=== PATIENT | male | born 1960 ===

== ENCOUNTER 2016-10-30 22:07 | Emergency (ER) | payer SELFPAY ==
[~2016-10-30] VITALS: Ht 172.7 cm; Wt 79.5 kg
[2016-10-30 22:13] VITALS: Ht 172.7 cm; Wt 79.5 kg
--- NOTE | 2016-10-30 23:12 | RADRPT ---
PROCEDURE: CT brain without contrast CLINICAL INDICATION: Intoxication TECHNIQUE: A CT of the brain was performed on a GE [address] scanner utilizing axial sections fr om the skull base through the vertex without contrast. The exam CDTIvol = 45.01 mGy and DLP = 720. 23 mGy-cm. COMPARISON: None available FINDINGS: Areas of low attenuation involving the inferior left greater than right frontal lobes most likely ar e the sequela of remote at post traumatic parenchymal contusions No acute intracranial hemorrhage is identified. There is no mass effect or midline shift. No extra-axial fluid collection is seen. Th e ventricles and sulci are mildly enlarged, compatible with generalized volume loss. Esteban-white dif ferentiation is preserved. The fourth ventricle is midline and there is no density alteration in th e ronald or cerebellum The osseous structures are unremarkable. The mastoid air cells and visualized paranasal sinuses are clear. RPTAT:HJJR IMPRESSION: 1. No evidence for acute intracranial abnormality or mass effect. 2. Bilateral left greater than right inferior frontal lobe areas of encephalomalacia likely the sequ william of remote parenchymal contusion superimposed upon generalized advanced cerebral atrophy for the patient's provided age of 56 years. Physician Pierre Date Time Electronically viewed and signed by Physician Pierre on 10/30/2016 23:12 /
--- NOTE | 2016-10-31 02:14 | ERD ---
ER Documentation Chief Complaint Date/Time DATE: 10/31/16 TIME: 02:12 Chief Complaint BIBA RA89,ETOH intox,found passed out on the curb HPI This is a 56-year-old male brought in by rescue 9 for alcohol intoxication. He was found passed on a curb. Patient is obtunded upon arrival but anything is a gag reflex. ROS All systems reviewed and are negative except as per history of present illness. Allergies Allergies: Coded Allergies: Unknown: Unable to obtain (Unverified , 10/30/16) PMhx/Soc Medical and Surgical Hx: Unable to obtain Hx Alcohol Use: Yes Smoking Status: Unknown if ever smoked Physical Exam Vitals Vital Signs Date Time Temp Pulse Resp B/P Pulse Ox O2 Delivery O2 Flow Rate FiO2 10/30/16 22:13 97.4 69 18 132/89 97 Physical Exam Const: [] Head: Atraumatic Eyes: Normal Conjunctiva ENT: Normal External Ears, Nose and Mouth. Neck: Full range of motion..~ No meningismus. Resp: Clear to auscultation bilaterally Cardio: Regular rate and rhythm, no murmurs Abd: Soft, non tender, non distended. Normal bowel sounds Skin: No petechiae or rashes Back: No midline or flank tenderness Ext: No cyanosis, or edema Neur: Awake and alert Psych: Normal Mood and Affect Procedures/MDM CT of the head is negative. Observation for Enecephalopathy: Time: 4 hours Family Hx: No Hypertension Evaluation: Frequent mental status exams showed improving symptoms and proof that the patient's encephalopathy was secondary to intoxication. Medical decision-making: This is a patient who comes in for acute alcohol intoxication. No evidence of intracranial trauma. Patient be discharged home. Advised to stop drinking Departure Diagnosis: Primary Impression: Alcoholic intoxication Complication of substance-induced condition: uncomplicated Qualified Code: F10.120 - Alcoholic intoxication, uncomplicated Condition: Stable CHRIS POZO Oct 31, 2016 02:14
[2016-10-31 02:51] VITALS: BP 115/73; PULSE 86; RESP 16; TEMP 98.1
== END 2016-10-31 05:56 | disposition home or self-care (01) ==
LOC: E/R 22:07
DX: F10.120 Alcohol abuse with intoxication, uncomplicated (principal); R40.2122 Coma scale, eyes open, to pain, at arrival to emergency department; R40.2222 Coma scale, best verbal response, incomprehensible words, at arrival to emergency department; R40.2342 Coma scale, best motor response, flexion withdrawal, at arrival to emergency department
CPT/HCPCS: 70450